=== PATIENT | male | born 1985 | race Caucasian/White ===

== ENCOUNTER 2023-10-02 14:56 | Emergency (ER) | payer OTHER, SELFPAY ==
--- NOTE | 2023-10-02 15:11 | ED.NURSE ---
presented with step father for several day history of suicidal ideation. was in [place] at the crisis center who attempted to arrange bed placement in [place]. there were called while driving there and told the bed wasn't available. after hearing that we don't have in-pt psych here, elected to drive to [place] for assessment. informed pt of our process of DEC assessment and ability to arrange bed placement if needed. Step father and pt decided to leave
== END 2023-10-02 15:14 | disposition left against medical advice (07) ==
PROVIDERS: Emergency Provider Emergency Medicine Emergency Medical Services
DX: Z53.21 Procedure and treatment not carried out due to patient leaving prior to being seen by health care provider (principal)